=== PATIENT | male | born 1955 | race Caucasian/White ===

== ENCOUNTER 2016-12-30 19:10 | Inpatient (IN) ==
--- NOTE | 2016-12-30 19:24 | ED EKG INTERP ---
EKG Interpretation - EKG Time of EKG reading by physician:: 19:17 EKG Read and Signed by:: Jamil Martinez EKG Interpretation (*Must complete 3 of following elements*): Abnormal Rate: 82 Rhythm: SR with occasional premature ventricular complezes and fusion complexes Comments: Abnormal ECG Attestation - Scribe Verification/Attestation Scribe:: Padmini Granados Acting as Scribe for:: Jamil Martinze Scribe documention review:: This chart was documented by a scribe and accurately reflects the service the provider performed and the decisions made by the provider.
--- NOTE | 2016-12-30 20:17 | PROVIDER DOCUMENTATION ---
HPI-Respiratory General <Jamli Martinez - Last Filed: 12/30/16 21:25> - General Source: patient - History of Present Illness-Resp Quality of Pain: reports: aching Severity in ED: reports: moderate Onset/Duration: reports: last week Timing: reports: still present Exposure: reports: unknown cause Cough Quality/Degree: reports: no cough Associated Symptoms: reports: shortness of breath, other (weakness, pedal edema , swollen abdomen). denies: flu-like symptoms, sweaty <Padmini Granados - Last Filed: 12/30/16 21:32> - General Chief Complaint: Shortness of Breath Stated Complaint: "ABD BLOATING, THINK IT'S HEART FAILURE" Time Seen by Provider: 12/30/16 19:46 Allergies/Adverse Reactions: Patient Allergies Allergy/AdvReac Type Severity Reaction Status Date / Time zinc Allergy ANAPHYLAXIS Verified 12/30/16 20:37 Home Medications: Home Medication List Medication Instructions Recorded Confirmed Last Taken Type Carvedilol 3.125 mg PO BID 07/22/16 12/30/16 12/30/16 18:00 History Fexofenadine [Beatriz] 180 mg PO DAILY 07/22/16 12/30/16 12/30/16 08:00 History Magnesium Oxide [Mag-Ox] 400 mg PO DAILY 07/22/16 12/30/16 12/30/16 08:00 History Furosemide [Lasix] 60 mg PO EVERY OTHER DAY #30 tablet 07/27/16 12/30/16 08:00 Rx Spironolactone [Aldactone] 25 mg PO DAILY #30 tablet 07/27/16 12/30/16 12/30/16 08:00 Rx Multivitamin [Multivitamins] 1 each PO QAM 12/30/16 12/30/16 12/30/16 08:00 History - History of Present Illness-Resp Nature of Presenting Problem: 61 Y/O M presents to ED with SOB. Pt states that he has a hx of CHF, for the past week increased SOB, states swelling in ABD, with pedal edema and states weakness, with poor appetite. Pt has a defibrillator, no hx of heart attack or stroke. (Padmini Granados) Review of Systems - Adult - REVIEW OF SYSTEMS - ADULT Constitutional: denies: chills, fever Eyes: reports: no symptoms reported Ears, Nose, Mouth & Throat: reports: no symptoms reported Cardiovascular: reports: no symptoms reported Respiratory: reports: shortness of breath Gastrointestinal: reports: abdominal pain, poor appetite Genitourinary: reports: no symptoms reported Musculoskeletal: reports: muscle weakness Integumentary: reports: no symptoms reported Neurological: reports: no symptoms reported Psychiatric: reports: no symptoms reported Endocrine: reports: no symptoms reported Hematologic/Lymphatic: reports: no symptoms reported Allergic/Immunologic: reports: no symptoms reported All Other Systems: Reviewed and Negative <Padmini Granados - Last Filed: 12/30/16 21:32> Past History - Adult - PAST MEDICAL HISTORY-ADULT Review of Records: reports: Old Records Reviewed, Nursing Assessment Review, Medications Reviewed, Social history reviewed & non-contributory. Cardiovascular: reports: CHF - IMMUNIZATION STATUS Childhood Immunizations: See Nurse Assessment Flu Vaccine: See Nurse Assessment - SOCIAL HISTORY Smoking: cigarettes, less than 1 pack/day Substance Use: none/never Alcohol Use Frequency: sober (former use) <Padmini Granados - Last Filed: 12/30/16 21:32> Physical Exam-General - CONSTITUTIONAL General Appearance: no apparent distress. negative: appears well - EYES Eyes: PERRL/EOMI, pink conjunctivae, fundi clear, no AV nicking - HEAD, EARS, NOSE, MOUTH & THROAT HENMT: TMs normal, pharynx normal. negative: moist mucous membranes - NECK Neck: non-tender, full range of motion, supple - RESPIRATORY Respiratory: chest non-tender, rales (bilateral) - CARDIOVASCULAR Cardiovascular: irregularly irregular - GASTROINTESTINAL (ABDOMEN) Abdominal Exam: tenderness. negative: guarding - LYMPHATIC Lymphatic: no adenopathy - MUSCULOSKELETAL Back Exam: normal inspection, no CVA tenderness, no vertebral tenderness Extremity: pedal edema (+2, +3) - SKIN Integumentary: normal color, normal turgor, warm/dry - NEUROLOGIC Neurologic: appliances sample maker II-XII nml as tested - PSYCHIATRIC Psych/Mental Status: normal mood/affect, normal thought process, oriented x 3 <Padmini Granados - Last Filed: 12/30/16 21:32> Progress <Jamil Martinez - Last Filed: 12/30/16 21:25> - XRAY 1 XRAY Study: Chest Impression: Abnormal XRAY Interpretation: Cardiomegaly, COPD changes 2 XRAY Study: Abdomen Impression: Abnormal XRAY Interpretation: constipation - CONSULTS/PCP/HOSPITALIST Notification #1 *Consult/PCP/Hospitalist*: Dr. Kimble Time Discussed: 21:13 Reason/Comments: Consult and POC. Consult Disposition: Admit (Admit Accepted) <Padmini Granados - Last Filed: 12/30/16 21:32> - PLAN OF CARE/RESULTS Progress/Plan/Lab Results: Laboratory Tests 12/30/16 12/30/16 12/30/16 19:35 19:35 19:35 WBC 19.65 H RBC 3.96 L Hgb 13.2 L Hct 39.0 L MCV 98.5 MCH 33.3 H MCHC 33.8 RDW Std Deviation 14.3 Plt Count 69 L MPV 14.7 H Neut % (Auto) 76.8 H Lymph % (Auto) 10.2 L Hyde % (Auto) 12.8 H Eos % (Auto) 0.1 Baso % (Auto) 0.1 Neut # (Auto) 15.11 H Lymph # (Auto) 2.00 Hyde # (Auto) 2.51 H Eos # (Auto) 0.02 Baso # (Auto) 0.01 Segmented Neutrophils 76 H Band Neutrophils 4 H Lymphocytes 14 L Monocytes 6 Large Platelets OCCASIONAL Anisocytosis 1+ PT INR PTT (Actin FS) D-Dimer 7.37 H Sodium 122 L Potassium 4.9 Chloride 82 L Carbon Dioxide 17 L Anion Gap 23 BUN 84 H Creatinine 1.8 H Estimated GFR/1.73 m2 39 BUN/Creatinine Ratio 47 Glucose 129 H Calculated Osmolality 273 Calcium 8.8 Magnesium 3.2 H Total Bilirubin 2.05 H AST 738 H ALT 1638 H Alkaline Phosphatase 198 H Creatine Kinase 141 Troponin T [id number]-R-[id number] Pept Total Protein 6.4 Albumin 3.6 Globulin 2.8 Albumin/Globulin Ratio 1.3 12/30/16 12/30/16 12/30/16 19:35 20:00 20:00 WBC RBC Hgb Hct MCV MCH MCHC RDW Std Deviation Plt Count MPV Neut % (Auto) Lymph % (Auto) Hyde % (Auto) Eos % (Auto) Baso % (Auto) Neut # (Auto) Lymph # (Auto) Hyde # (Auto) Eos # (Auto) Baso # (Auto) Segmented Neutrophils Band Neutrophils Lymphocytes Monocytes Large Platelets Anisocytosis PT 25.7 H INR 2.57 PTT (Actin FS) 29.6 D-Dimer Sodium Potassium Chloride Carbon Dioxide Anion Gap BUN Creatinine Estimated GFR/1.73 m2 BUN/Creatinine Ratio Glucose Calculated Osmolality Calcium Magnesium Total Bilirubin AST ALT Alkaline Phosphatase Creatine Kinase Troponin T 0.014 Abv-Q-[id number] Pept 72060 H Total Protein Albumin Globulin Albumin/Globulin Ratio Orders Category Date Time Status Cardiac Monitoring DIRECTED Care 12/30/16 19:17 Active Saline Loc NOW Care 12/30/16 19:17 Active ABDOMEN FLAT/UPRIGHT [RAD] Stat Exams 12/30/16 20:10 Taken CHEST-2 VIEWS [RAD] Stat Exams 12/30/16 19:17 Taken BLOOD CULTURE [BLDCUL] Stat Lab 12/30/16 21:10 Results CBC WITH ELECTRONIC DIFF [HEME] Stat Lab 12/30/16 19:35 Completed CK PROFILE [SP CHEM] Stat Lab 12/30/16 19:35 Completed COMPREHENSIVE METABOLIC PANEL [CHEM] Stat Lab 12/30/16 19:35 Completed D-DIMER [CHEM] Stat Lab 12/30/16 19:35 Completed DIGOXIN [TDM] Stat Lab 12/30/16 20:00 Received DIRECT STREP Stat Lab 12/30/16 21:04 Completed INFLUENZA SCREEN A/B Stat Lab 12/30/16 21:04 Received LACTATE, PLASMA [CHEM] Stat Lab 12/30/16 21:16 Received MAGNESIUM [CHEM] Stat Lab 12/30/16 19:35 Completed PRO B-NATRIURETIC PEPTIDE Stat Lab 12/30/16 20:00 Completed PROTIME WITH INR [COAG] Stat Lab 12/30/16 19:35 Completed PTT [COAG] Stat Lab 12/30/16 19:35 Completed TROPONIN T Stat Lab 12/30/16 20:00 Completed URINALYSIS [URINALYSIS] Stat Lab 12/30/16 20:51 Uncollected CefTRIAXONE 1 GM/NS [Rocephin 1 gm/Ns] 50 ml Med 12/30/16 20:45 Discontinued IV NOW EKG [EKG] Stat Ther 12/30/16 19:17 Ordered Vital Signs - 24 hr 12/30/16 12/30/16 19:18 19:47 Temperature 98.8 F Pulse Rate 81 Respiratory 20 Rate Blood Pressure 96/75 O2 Sat by Pulse 100 Oximetry (Padmini Granados) Departure - Departure Time of Disposition Order: 21:24 Certified Medical Emergency: Emergent <Jamil Martinez - Last Filed: 12/30/16 21:25> - Departure Time of Disposition Order: 21:31 Certified Medical Emergency: Emergent <Padmini Granados - Last Filed: 12/30/16 21:32> - Departure DIAGNOSIS: SOB (shortness of breath), Abnormal laboratory test result, Acute prerenal azotemia CHF (congestive heart failure) Qualifiers: Congestive heart failure type: unspecified congestive heart failure type Congestive heart failure chronicity: unspecified congestive heart failure chronicity Qualified Code(s): I50.9 - Heart failure, unspecified Leukocytosis, unspecified Qualifiers: Leukocytosis type: unspecified Qualified Code(s): D72.829 - Elevated white blood cell count, unspecified Disposition: ADMITTED INPATIENT 09 Condition: Stable Additional Instructions: ED Follow Up Instructions: You have been treated by a care provider in the Emergency Department. These instructions are being provided to you so you can have an understanding of how to care for yourself upon discharge. Upon discharge from the Emergency Department, you are responsible for making arrangements for follow-up care by a physician of your choice. Take all prescribed medications as directed. Return to the Emergency Department immediately for any new or worsening symptoms. You may call the Physician Referral phone number at [phone] to obtain a list of Physicians who are taking new patients. Referrals: Dwight Goldman [Primary Care Provider] - Attestation - Scribe Verification/Attestation Scribe:: Padmini Granados Acting as Scribe for:: Jamil Martinez Scribe documention review:: This chart was documented by a scribe and accurately reflects the service the provider performed and the decisions made by the provider. <Padmini Granados - Last Filed: 12/30/16 21:32> Physician Attestation
[2016-12-30 20:26] LABS: BASO% 0.1 % (0.0-0.8); EOS# 0.02 X1000 (0.0-0.7); EOS% 0.1 % (0.0-10.0); HEMOGLOBIN 13.2 g/dL (14.0-18.0); LYMPH% 10.2 % (20.5-51.1); MANUAL DIFF NEEDED? YES; MCH 33.3 PG (27-31); MCHC 33.8 g/dL (33-37); MCV 98.5 FL (81-99); MONO# 2.51 X1000 (0.11-0.59); MONO% 12.8 % (1.7-9.3); MPV 14.7 FL (7.4-10.4); NEUT% 76.8 % (42.2-75.2); PLT 69 X1000 (130-400); RBC 3.96 XMIL (4.7-6.1)
[2016-12-30 20:43] LABS: INR 2.57; PROTIME 25.7 Seconds (9.2-11.7); PTT 29.6 Seconds (22.0-36.0)
[2016-12-30] MEDS ORDERED: ROCEPHIN 1 GM/NS 50 ML IV ONE (20:45)
[2016-12-30 21:16] LABS: BANDS 4 % (0-1); LYMPHS 14 % (21-51); MONO 6 % (1-9)
[2016-12-30 21:17] LABS: ALBUMIN 3.6 g/dL (3.5-5.0); CALCIUM 8.8 mg/dL (8.8-10.2); MAGNESIUM 3.2 mg/dL (1.5-2.7); POTASSIUM 4.9 mmol/L (3.5-5.1); TOTAL BILIRUBIN 2.05 mg/dL (0.20-1.00); TOTAL PROTEIN 6.4 g/dL (6.3-8.3)
[2016-12-30 21:19] LABS: LARGE PLATELETS OCCASIONAL
[2016-12-30 23:48] LABS: URINE SOURCE CLEAN CATCH
[2016-12-30 23:57] LABS: BILIRUBIN URINE SMALL (NEGATIVE); BLOOD URINE NEGATIVE (NEGATIVE); CLARITY CLEAR (CLEAR); COLOR YELLOW; GLUCOSE URINE NEGATIVE (NEGATIVE); LEUKOCYTES URINE NEGATIVE (NEGATIVE); NITRITE URINE NEGATIVE (NEGATIVE); PH URINE 5.5; PROTEIN URINE TRACE mg/dL (NEGATIVE); SP GRAVITY URINE >= 1.030; UROBILINOGEN URINE 0.2 EU/dL (0.2-1.0)
[2016-12-31 00:02] LABS: URINE RBC <10 /HPF (<10); URINE WBC <10 /HPF (<10)
[2016-12-31] MEDS: LASIX IV SCH ×3 (01:18→23:28)
--- NOTE | 2016-12-31 04:45 | HISTORY AND PHYSICAL ---
CHIEF COMPLAINT: Shortness of breath x4 days. HISTORY OF PRESENTING ILLNESS: This is a 61-year-old male with a history of congestive heart failure, diabetes mellitus type 2, and hypertension, who had presented to the emergency department with 4 days history of worsening shortness of breath. The patient states that it feels like his previous heart failure exacerbation. He states that he could not catch his breath. He was getting more swollen and subsequently had come to the emergency department. In the ER, he was evaluated. He was found to be in heart failure and due to his presenting symptoms it was thought that he would need hospitalization for further management. At the time of my examination, he denied any headache, fever, chills, chest pain, hemoptysis, or any weight changes but complained of more shortness of breath. PAST MEDICAL HISTORY: Includes CHF, systolic dysfunction, diabetes mellitus type 2, hypertension, paroxysmal atrial fibrillation. PAST SURGICAL HISTORY: AICD, tonsillectomy. ALLERGIES: Zinc. CURRENT MEDICATIONS: As listed in the MAR. SOCIAL HISTORY: Forty-five pack years history of smoking. Denies any history of alcohol or illicit drug use. FAMILY HISTORY: Positive for coronary disease in father. REVIEW OF SYSTEMS: [employer] point systems is as in HPI. Other systems negative. PHYSICAL EXAMINATION: GENERAL: Cooperative, friendly male. He is resting more comfortably now. VITAL SIGNS: Temperature 98.8 degrees, pulse 81, respirations 20, blood pressure 96/75. HEENT: Atraumatic, normocephalic. Extraocular movements intact. PERRLA. NECK: No masses. CHEST: Bibasilar rales. CARDIOVASCULAR: Regular rate and rhythm. ABDOMEN: Soft. Positive bowel sounds. EXTREMITIES: Plus-1 edema. NEUROLOGIC: He is awake, alert, oriented x3. GENITOURINARY: No bladder distention. SKIN: Warm. LABORATORIES AND STUDIES: WBC 19.65, hemoglobin 13.2, hematocrit 39.0, platelets 69,000. Sodium 122, potassium 4.9, chloride 82, CO2 17, BUN is 84, creatinine is 1.8, glucose is 129. ProBNP is 16,352. Plasma lactate is 4.9. ASSESSMENT: This is a 61-year-old male with a history of congestive heart failure, diabetes mellitus type 2, and hypertension who presented to the emergency department with 4 days history of worsening shortness of breath. He is found to be in heart failure. He will need hospitalization for further management. 1. Acute congestive heart failure exacerbation, suspected systolic dysfunction. 2. Hyponatremia. 3. Leukocytosis. 4. Chronic cirrhosis with abnormal LFT. 5. Acute kidney injury. 6. Diabetes mellitus type 2. PLAN: 1. We will admit patient to [facility]. 2. We will consult his content assistant. 3. We will continue with gentle diuresis. 4. We will fluid restrict p.o. 5. We will re-evaluate his previous cirrhosis workup. 6. We will monitor renal function. 7. Monitor blood glucose closely. 8. We will put patient on DVT prophylaxis with SCDs. 9. We will continue to follow and reassess.
--- NOTE | 2016-12-31 07:03 | Diag Imaging Result Document ---
PROCEDURE NAME: CHEST-2 VIEWS - 12/30/2016 FRONTAL AND LATERAL CHEST, TWO VIEWS: COMPARISON: 07/26/2016. FINDINGS: The lungs are well expanded. The heart is borderline mildly prominent. The patient has a left-sided pacemaker. No pleural effusions. Mild increased interstitial markings believed to be slight vascular distention. No consolidation. IMPRESSION: Mild increased interstitial markings believed to represent mild pulmonary edema.
--- NOTE | 2016-12-31 07:12 | Diag Imaging Result Document ---
PROCEDURE NAME: ABDOMEN FLAT/UPRIGHT - 12/30/2016 FLAT AND UPRIGHT, THREE VIEWS: FINDINGS: No free air beneath the diaphragm. No bowel obstruction. No organomegaly. Mild scoliosis with moderate degenerative changes. No abnormal abdominal calcifications. IMPRESSION: No acute abnormality although there are longstanding degenerative changes to the spine with scoliosis.
[2016-12-31] MEDS: HUMULIN R SUBQ SCH ×4 (07:44→20:39)
[2016-12-31] MEDS: COREG PO SCH ×2 (08:05→20:39)
[2016-12-31] MEDS: MAG-OX PO SCH (08:05)
[2016-12-31] MEDS: ALDACTONE PO SCH (08:05)
[2016-12-31 08:37] LABS: BASO% 0.1 % (0.0-0.8); EOS# 0.01 X1000 (0.0-0.7); EOS% 0.1 % (0.0-10.0); HEMATOCRIT 37.1 % (42.0-52.0); HEMOGLOBIN 12.6 g/dL (14.0-18.0); IMM GRAN# 0.05 X1000 (0.0-0.04); IMM GRAN% 0.3 % (0.0-0.5); LYMPH# 2.44 X1000 (1.2-3.4); LYMPH% 15.4 % (20.5-51.1); MANUAL DIFF NEEDED? YES; MCH 32.7 PG (27-31); MCV 96.4 FL (81-99); MONO% 12.6 % (1.7-9.3); NEUT% 71.5 % (42.2-75.2); RBC 3.85 XMIL (4.7-6.1)
[2016-12-31 09:02] LABS: BANDS 2 % (0-1); LYMPHS 6 % (21-51); MONO 14 % (1-9)
[2016-12-31 09:03] LABS: PLT 92 X1000 (130-400)
--- NOTE | 2016-12-31 09:22 | EKG Report ---
Test Performed on : 12/30/2016 7:17:48 PM Test Reason : Chest Pain Blood Pressure : / mmHG Vent. Rate : 082 BPM Atrial Rate : 082 BPM P-R Int : 182 ms QRS Dur : 132 ms QT Int : 436 ms P-R-T Axes : 072 018 072 degrees QTc Int : 509 ms Sinus rhythm. with occasional premature ventricular complexes. and fusion complexes Possible Left atrial enlargement Nonspecific intraventricular block Nonspecific T wave abnormality Abnormal ECG When compared with ECG of 22-JUL-2016 22:58, fusion complexes are now present premature ventricular complexes. are now present Unconfirmed Result
[2016-12-31] MEDS ORDERED: PRINIVIL PO SCH (14:30)
[2016-12-31] MEDS: PRINIVIL PO SCH (14:56)
--- NOTE | 2016-12-31 17:58 | CONSULTATION ---
DATE OF CONSULTATION: 12/31/2016 IMPRESSION: 1. Acute on chronic systolic heart failure with predominantly right-sided heart failure. 2. Medical noncompliance. 3. Severe nonischemic cardiomyopathy. 4. Type 2 diabetes mellitus. 5. Hypertension. 6. History of previous atrial fibrillation. RECOMMENDATIONS: 1. Continue diuresis with intravenous Lasix. 2. Add low-dose angiotensin converting enzyme inhibitor, lisinopril as tolerated. 3. Continue Coreg. 4. Compliance with medications and followup discussed at length with the patient and his . HISTORY: This 61-year-old, white male, with past history of severe nonischemic cardiomyopathy, diabetes mellitus and hypertension as well as previous episode of atrial fibrillation was admitted for further evaluation of exacerbation of congestive heart failure. He was hospitalized here last fall for congestive heart failure and improved with diuresis. He had a followup visit with Dr. Fernandez back in September. He indicates that insurance company would not refill some of his medications in October. Because of financial reasons he had not come back for followup. Thus he has been without his angiotensin converting enzyme inhibitor and digoxin since October. He relates a 1-week history of swelling and abdominal bloating. There has been exertional shortness of breath as well. There has been no orthopnea. He presented to the hospital for evaluation and he was admitted for further management of congestive heart failure. He is diuresing with intravenous Lasix. He relates considerable financial difficulty related to medical expenses. PAST MEDICAL HISTORY: 1. Severe nonischemic cardiomyopathy with left ejection fraction approximately 20%. 2. Diabetes mellitus. 3. Hypertension. 4. Hyperlipidemia. 5. History of previous atrial fibrillation. 6. Status post [facility] pacemaker/defibrillator. ALLERGIES: He is allergic or intolerant to zinc. PAST SURGICAL HISTORY: Includes implantable defibrillator and tonsillectomy. MEDICATIONS: Prior to admission as listed. SOCIAL HISTORY: He smokes 1-1/2 pack of cigarettes per day. He has history of previous alcohol use but discontinued this 15 years ago. FAMILY HISTORY: Significant in that his father and brother also have congestive heart failure. There is no family history of liver disease. REVIEW OF SYSTEMS: Pulmonary: Noteworthy for exertional dyspnea. Gastrointestinal: Negative. Constitutional: Negative. Remaining review of systems negative/noncontributory 14 total systems reviewed. PHYSICAL EXAM: This is an older middle-aged male, in no distress.Vital Signs: As recorded. Include a blood pressure 101/69, heart rate 90 and regular. HEENT Exam: Extraocular movements appear intact. Mucous membranes are moist. Neck: Supple. Jugular venous distention is evident consistent with central venous pressure of greater than 12. There are no carotid bruits. Chest: Clear to auscultation. Cardiac: Reveals a regular rate and rhythm without appreciable murmur, gallop. Abdomen: Soft, nontender. Extremities: Demonstrate mild 1+ pretibial edema. Neurologic Exam: Reveals him to be alert, fully oriented. Speech is fluent. Moves all 4 extremities equally well. Skin: Warm, dry. Psych: Exam reveals mood to be appropriate. ECG demonstrates sinus rhythm, left atrial abnormality. Delayed precordial R-wave progression. Nonspecific intraventricular conduction block and nonspecific T-wave abnormality.
--- NOTE | 2016-12-31 18:23 | PROGRESS NOTE ---
DATE: 12/31/2016 SUBJECTIVE: Patient reports feeling better, less shortness of breath. No chest pain, no fever, no chills. OBJECTIVE: Vital Signs: Temperature 98.6 degrees, heart rate 81, respiratory rate 20, blood pressure 91/71, O2 saturation 100% on room air. General Examination: This is a 61-year-old male, lying in bed, in no acute distress. HEENT: Head is normocephalic, atraumatic. Anicteric sclerae and pale conjunctivae. Mucous membranes moist. Neck: Supple. No JVD noted. No carotid bruits. No lymphadenopathy. No thyromegaly. Cardiovascular: S1, S2 heard. No murmurs, gallops, or rubs. Regular rate and rhythm. Respiratory: Clear bilaterally to auscultation, very few bibasilar rales, and the patient is not using any accessory muscles or having work of breathing. Abdomen: Soft, nontender to palpation. Bowel sounds present. No organomegaly. Extremities: 1+ pitting edema in both lower extremities. Peripheral pulses present in both legs. Neurological: Patient is alert and oriented x3. Able to move her extremities. Cranial nerves 2-12 grossly normal. LABORATORY DATA: The white cell count is 15.85, hemoglobin 12.6, hematocrit 37.1, platelets 92,000. No BMP. ASSESSMENT: 1. Acute congestive heart failure exacerbation. 2. Hyponatremia. 3. Chronic liver cirrhosis with normal liver function tests. 4. Acute kidney injury. 5. Diabetes mellitus type 2. PLAN: 1. Patient admitted to the hospital for acute congestive heart failure. The patient has been started on Lasix, and in this case he is getting Lasix 40 mg q.12 hours. We will continue with the same management. 2. For hyponatremia, we are going to continue monitoring BMP for acute kidney injury. The creatinine was 1.8. We are going to check a BMP tomorrow, we will compare. 3. For diabetes mellitus, we will continue with sliding scale insulin. Further recommendations to follow according to the clinical situation of the patient.
[2017-01-01] MEDS: LASIX IV SCH (01:59)
[2017-01-01 05:18] LABS: EOS# 0.02 X1000 (0.0-0.7); EOS% 0.2 % (0.0-10.0); HEMATOCRIT 34.6 % (42.0-52.0); HEMOGLOBIN 11.9 g/dL (14.0-18.0); IMM GRAN# 0.04 X1000 (0.0-0.04); IMM GRAN% 0.3 % (0.0-0.5); LYMPH# 2.24 X1000 (1.2-3.4); MANUAL DIFF NEEDED? NO; MCH 32.9 PG (27-31); MCHC 34.4 g/dL (33-37); MCV 95.6 FL (81-99); MONO# 1.64 X1000 (0.11-0.59); MONO% 12.5 % (1.7-9.3); MPV 13.6 FL (7.4-10.4); PLT 76 X1000 (130-400); RBC 3.62 XMIL (4.7-6.1)
[2017-01-01 05:36] LABS: ALBUMIN 3.3 g/dL (3.5-5.0); CALCIUM 8.2 mg/dL (8.8-10.2); POTASSIUM 4.4 mmol/L (3.5-5.1); TOTAL BILIRUBIN 1.87 mg/dL (0.20-1.00); TOTAL PROTEIN 5.6 g/dL (6.3-8.3)
[2017-01-01] MEDS: HUMULIN R SUBQ SCH ×4 (06:27→20:57)
[2017-01-01] MEDS: COREG PO SCH ×2 (08:24→20:57)
[2017-01-01] MEDS: ALDACTONE PO SCH (08:24)
[2017-01-01] MEDS: PRINIVIL PO SCH (08:24)
[2017-01-01] MEDS: MAG-OX PO SCH (08:24)
--- NOTE | 2017-01-01 09:21 | Diag Imaging Result Document ---
PROCEDURE NAME: CHEST-2 VIEWS - 01/01/2017 PA AND LATERAL RADIOGRAPH OF THE CHEST: COMPARISON: 12/30/2016. FINDINGS: Mild increased interstitial markings are stable suggesting very mild edema or, perhaps, chronic interstitial thickening. There is suggestion of minimal pulmonary venous congestion that is unchanged. No new consolidations are identified. There is stable cardiomegaly. IMPRESSION: Stable chest.
--- NOTE | 2017-01-01 15:23 | PROGRESS NOTE ---
DATE: 01/01/2017 SUBJECTIVE: Mr. English is a 61-year-old male, he is in no acute distress and able to answer questions appropriately. He states he has no complaints. He did feel like he had felt a little "blah" earlier but is starting to feel better again. He really could not elaborate on what "blah" was. He has had a high blood pressure that has been ranging in the 80s for the last 12 hours. But these blood pressures are okay by Dr. Pittman. OBJECTIVE: Vital Signs: Temperature is 97.4 degrees, heart rate 67, respiratory rate 13, blood pressure 86/57. O2 saturation 95% on room air. Weight on admit for 12/30 was 216 pounds. On 12/31, he was 214 pounds and on 01/01 was 221 pounds. General: Mr. English is a 61-year-old male, he is in no acute distress. Able to answer questions appropriately. Cardiovascular: S1-S2. Regular rate and rhythm. No rubs, gallops, or murmurs. Pulmonary: Clear posteriorly, bilateral breath sounds. Mild crackles in the bases bilaterally. Currently on room air with no work of breathing noted. Extremities: No edema, +2 dorsalis and radial pulses. LABORATORY DATA: White blood cells 13,000. Hemoglobin 11, hematocrit 34, platelet count 76,000. Sodium 124, potassium 4.4, BUN 99, creatinine 2, glucose 88. Total bilirubin 1.87, AST 513, ALT 1238. Albumin 3.3. IMAGING: Chest x-ray: Mild increased interstitial markings that are stable suggesting very mild edema or chronic interstitial thickening. Minimal pulmonary venous congestion is unchanged. ASSESSMENT AND PLAN: 1. Acute on chronic systolic heart failure with right-sided heart failure/severe nonischemic cardiomyopathy. He has been followed by Cardiology. He has systolic blood pressures that run anywhere from 70s to 80s systolic at home. His Lasix has been changed from IV to p.o. and, per Cardiology, we are to give all antihypertensives that are ordered unless systolic blood pressure drops into the 60s. Patient is asymptomatic with this. 2. Hyponatremia. It is improving. 3. Acute kidney injury on chronic kidney disease stage 3. Baseline creatinine is anywhere from 1.0 to 1.7. Currently he has ranged 1.8 to 2.0. Today is 2.0. Lasix has been changed from IV to p.o. We will continue to monitor daily. 4. Diabetes myelitis. Glucoses are controlled. 5. Hyperbilirubinemia with transaminitis. Total bilirubin is 1.87 today. Back in July he ranged anywhere from 1.7 to 4.0 on his bilirubin. This is likely secondary to right-sided heart failure. His numbers have mildly improved today. 6. Thrombocytopenia. Platelet count is down to 76. We will monitor. 7. Anemia that is chronic. We will continue to monitor. 8. Deep venous thrombosis prophylaxis. SCDs. 9. Gastrointestinal prophylaxis. Nothing at this time. Dictated by ROBIN Giles for Ted Chavez MD
[2017-01-01] MEDS: LASIX PO SCH (20:57)
[2017-01-02 05:24] LABS: MANUAL DIFF NEEDED? NO
[2017-01-02 05:41] LABS: BASO% 0.1 % (0.0-0.8); EOS# 0.01 X1000 (0.0-0.7); EOS% 0.1 % (0.0-10.0); HEMATOCRIT 36.8 % (42.0-52.0); HEMOGLOBIN 12.8 g/dL (14.0-18.0); IMM GRAN# 0.03 X1000 (0.0-0.04); IMM GRAN% 0.2 % (0.0-0.5); LYMPH# 1.64 X1000 (1.2-3.4); LYMPH% 12.4 % (20.5-51.1); MCH 32.7 PG (27-31); MCHC 34.8 g/dL (33-37); MCV 93.9 FL (81-99); MONO# 1.37 X1000 (0.11-0.59); MONO% 10.3 % (1.7-9.3); MPV 14.4 FL (7.4-10.4); NEUT% 76.9 % (42.2-75.2); PLT 88 X1000 (130-400); RBC 3.92 XMIL (4.7-6.1)
[2017-01-02 05:58] LABS: ALBUMIN 3.3 g/dL (3.5-5.0); POTASSIUM 4.7 mmol/L (3.5-5.1); TOTAL BILIRUBIN 1.94 mg/dL (0.20-1.00); TOTAL PROTEIN 5.8 g/dL (6.3-8.3)
--- NOTE | 2017-01-02 06:59 | EKG Report ---
Test Performed on : 01/01/2017 00:17:37 AM Test Reason : No Order in [facility] Blood Pressure : / mmHG Vent. Rate : 067 BPM Atrial Rate : 067 BPM P-R Int : 190 ms QRS Dur : 132 ms QT Int : 460 ms P-R-T Axes : 073 -07 076 degrees QTc Int : 486 ms Sinus rhythm. with occasional premature ventricular complexes. Nonspecific intraventricular block Abnormal ECG When compared with ECG of 30-DEC-2016 19:17, (Unconfirmed) fusion complexes are no longer present Confirmed by Radha COLNI, Lex Tomas ([id number]) on 01/04/2017 1:35:13 PM
[2017-01-02] MEDS: HUMULIN R SUBQ SCH ×2 (07:33→12:07)
[2017-01-02 07:40] VITALS: BP 81/50
[2017-01-02] MEDS: COREG PO SCH (08:14)
[2017-01-02] MEDS: PRINIVIL PO SCH (08:14)
[2017-01-02] MEDS: MAG-OX PO SCH (08:15)
[2017-01-02] MEDS: LASIX PO SCH (08:15)
[2017-01-02] MEDS: ALDACTONE PO SCH (08:15)
[2017-01-02] MEDS ORDERED: SAMSCA PO ONE (10:08)
--- NOTE | 2017-01-02 16:19 | ECHO REPORT ---
ORDER DATE: 12/31/2016 ECHOCARDIOGRAPHIC MEASUREMENTS: 1. Interventricular septum 0.7. 2. Left ventricular posterior wall 0.7. 3. Diastolic diameter 5.1. 4. Left atrium 4.6. Aorta 3. SUMMARY OF 2-DIMENSIONAL IMAGIN. Aortic valve leaflets were trileaflet. Tricuspid valve was normal. Pulmonic valve was normal. Mitral valve was normal. There was trace pulmonary regurgitation. 2. Left ventricle was severely dilated with severely reduced systolic function. Estimated ejection fraction of 15%. There is severe global hypokinesis. 3. Pacing leads are noted in the right chamber. 4. There is moderate mitral regurgitation. 5. Peak velocity across the aortic valve less than 2 m/sec. By Doppler studies, there is no aortic stenosis or regurgitation. There is moderate tricuspid regurgitation. Peak velocity across the tricuspid valve was 2 m/sec. 6. There is no pericardial effusion or obvious intracardiac mass or thrombus seen.
--- NOTE | 2017-01-03 06:14 | DISCHARGE SUMMARY ---
ADMISSION DATE: 12/30/2016 DISCHARGE DATE: 01/02/2017 DISCHARGE DIAGNOSES: 1. Acute congestive heart failure exacerbation improved. 2. Severe nonischemic cardiomyopathy. 3. Diabetes type 2. 4. Medical noncompliance. 5. Hypertension. 6. History of previous atrial fibrillation. CONSULTATION: Dr. Baljit Del Rio from Cardiology. PROCEDURES: An x-ray done on admission showed mild increased interstitial marking believed to represent mild pulmonary edema. HOSPITAL COURSE: This is a 61-year-old male with history of congestive heart failure, diabetes mellitus type 2, and hypertension who presented to the emergency department with a 4-day history of worsening shortness of breath. The patient states that it feels like her previous heart failure exacerbation. The patient reports that he could not catch his breath. He noticed more swelling of both lower extremities so, he decided to come to the emergency department. The patient admitted to the hospital for further evaluation and treatment. Cardiology has evaluated this patient. The patient was started on aggressive diuretic medication. In this case, he was receiving Lasix 40 mg IV q.12 hours, and although clinically he was less short of breath, blood pressure has gone down to the 70s and 80s. Although the patient reported that this is his usual blood pressure 80s and 90s systolic blood pressure. In any case, because of low blood pressure, Cardiology decided to change IV Lasix to oral Lasix. Patient was receiving furosemide 40 mg p.o. b.i.d., but at discharge considering that the blood pressure is still in the range of 80s and 90s, we prefer to continue with just Lasix 40 mg p.o. daily. Also seen in the hospital, Cardiology has started him on small doses of lisinopril; in this case, 2.5 mg p.o. daily. We will continue with Coreg at the same time. Patient is supposed to see his primary care physician in 1 week. It is important to remark that this patient has hyponatremia 124, and that hyponatremia is an indicator of severe heart failure. In any case, we prefer to give him 1 dose of Samsca, he was instructed to see his primary care physician in 1 week and have a BMP repeated. Patient is being discharged in stable condition. The patient is able to walk around. DISCHARGE PHYSICAL EXAMINATION: Vitals: Temperature 96.7 degrees, heart rate 73, respiratory rate 26, blood pressure 100/67. O2 saturation 98% on room air. General: This is a 61-year-old male, lying in bed, in no acute distress. HEENT: Head is normocephalic, atraumatic. Anicteric sclerae and pale conjunctivae. Mucous membranes moist. Pupils equal, round, reactive to light and accommodation. Neck: Supple. No JVD noted. No carotid bruits. No lymphadenopathy. No thyromegaly. Cardiovascular: S1, S2 heard. No murmurs, gallops, or rubs. Regular rate and rhythm. Respiratory: Clear bilaterally to auscultation. Very few rales in both bases but definitely much better in comparing with admission. Abdomen: Soft, nontender to palpation. Bowel sounds present. No organomegaly. Extremities: No clubbing, cyanosis and very mild edema noted in both lower extremities. Much better in comparing to admission. Neurological: Patient is alert and oriented x3. Able to move 4 extremities. Cranial nerves 2-12 grossly normal. DISCHARGE DISPOSITION: To home to self-care. FOLLOW UP: 1. With Dr. Dwight Goldman in 1 week with a [facility]. 2. With Dr. Fernandez his primary forge tender in 2-4 weeks. LIST OF MEDICATIONS: 1. Furosemide 40 mg 1 tablet p.o. daily. 2. Lisinopril 2.5 mg 1 tablet p.o. daily. 3. Carvedilol 3.125 mg p.o. b.i.d. 4. Beatriz 180 mg p.o. daily as needed for insomnia. 5. Multivitamin 1 tablet p.o. daily. 6. Aldactone 25 mg 1 tablet p.o. daily.
== END 2017-01-02 12:30 | disposition home or self-care (01) | DRG 291 ==
LOC: ED 19:10 → EDIPHOLD 23:46 → 3S 12-31 01:14
PROVIDERS: ATTEND Internal Medicine
DX: I13.0 Hypertensive heart and chronic kidney disease with heart failure and stage 1 through stage 4 chronic kidney disease, or unspecified chronic kidney disease (principal); I50.23 Acute on chronic systolic (congestive) heart failure; E11.22 Type 2 diabetes mellitus with diabetic chronic kidney disease; D69.6 Thrombocytopenia, unspecified; I42.8 Other cardiomyopathies; N18.3 Chronic kidney disease, stage 3 (moderate); E87.1 Hypo-osmolality and hyponatremia; D72.829 Elevated white blood cell count, unspecified; K74.60 Unspecified cirrhosis of liver; I48.0 Paroxysmal atrial fibrillation; F17.210 Nicotine dependence, cigarettes, uncomplicated; T46.0X6A Underdosing of cardiac-stimulant glycosides and drugs of similar action, initial encounter; T46.4X6A Underdosing of angiotensin-converting-enzyme inhibitors, initial encounter; E78.5 Hyperlipidemia, unspecified; D64.9 Anemia, unspecified; Z91.120 Patient's intentional underdosing of medication regimen due to financial hardship; Z95.810 Presence of automatic (implantable) cardiac defibrillator; Z82.49 Family history of ischemic heart disease and other diseases of the circulatory system; Z91.19 Patient's noncompliance with other medical treatment and regimen; Z79.899 Other long term (current) drug therapy
CPT/HCPCS: 71020; 74020; 80053; 80162; 81001; 82550; 82948; 83605; 83735; 83880; 84443; 84484; 85025; 85379; 85610; 85730; 87040; 87081; 87430; 87804; 93005; 93010; 93306; 96374; J0696; J1940

== ENCOUNTER 2019-06-24 08:25 | Inpatient (IN) ==
--- NOTE | 2019-06-24 08:49 | EKG Report ---
Test Performed on : 06/24/2019 08:32:38 AM Test Reason : digoxin toxicity Blood Pressure : / mmHG Vent. Rate : 066 BPM Atrial Rate : 326 BPM P-R Int : 000 ms QRS Dur : 154 ms QT Int : 410 ms P-R-T Axes : 000 -64 090 degrees QTc Int : 429 ms Atrial fibrillation. Left axis deviation Nonspecific intraventricular block Abnormal ECG When compared with ECG of 28-JAN-2017 07:50, Atrial fibrillation. has replaced Electronic ventricular pacemaker Unconfirmed Result
--- NOTE | 2019-06-24 09:05 | PROVIDER DOCUMENTATION ---
HPI-Cardiac General - General Chief Complaint: Abnormal Lab[s] Stated Complaint: [facility] SENT Time Seen by Provider: 06/24/19 08:33 Source: patient, family Allergies/Adverse Reactions: Patient Allergies Allergy/AdvReac Type Severity Reaction Status Date / Time zinc Allergy ANAPHYLAXIS Verified 01/07/17 09:22 Home Medications: Home Medication List Medication Instructions Recorded Confirmed Last Taken Type Magnesium Oxide [Mag-Ox] 400 mg PO BID 07/22/16 06/24/19 01/27/17 18:30 History 400 Apixaban [Eliquis] 5 mg PO BID #60 tablet 01/12/17 06/24/19 01/28/17 06:30 Rx 5 Carvedilol 3.125 mg PO BID #30 tablet 01/12/17 06/24/19 01/27/17 18:30 Rx 3.125 Digoxin [Lanoxin] 250 microgm PO DAILY #30 tablet 01/12/17 06/24/19 01/27/17 0 6:30 Rx 250 Furosemide [Lasix] 40 mg PO DAILY #30 tablet 01/12/17 06/24/19 01/27/17 06:30 Rx 40 LISINOpril [Prinivil] 2.5 mg PO DAILY #60 tablet 01/12/17 06/24/19 01/27/17 06:30 Rx 2.5 Multivitamin [Multivitamins] 1 each PO QAM #30 capsule 01/12/17 06/24/19 01/27/17 Rx 0630 Amiodarone [Cordarone] 200 mg PO DAILY 06/24/19 06/24/19 Unknown History Metolazone 2.5 mg PO DIRECTED 06/24/19 06/24/19 Unknown History Potassium Chloride [Klor-Con M20] 2 tab PO BID 06/24/19 06/24/19 Unknown History Trazodone [Desyrel] 50 mg PO QHS 06/24/19 06/24/19 Unknown History - History of Present Illness-Cardiac Nature of Presenting Problem: Patient states he got a call from 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 He reports having some diarrhea the last couple of days and not feeling well. He is not sleeping well. He denies chest pain. His states he has been slightly confused the last couple of days Location: reports: other (he has not felt well for the past week and has had some diarrhea the last couple of days) Quality of Pain: reports: none Severity in ED: mild Onset/Duration: gradual Timing: still present Context/Activities at Onset: reports: none Modifying Factors: improves with: nothing History of arrythmia: reports: A-Fib Recent use of:: reports: no stimulants Nitro Today/Relief: reports: no nitro taken today Prior Chest Pain/Cardiac Workup: reports: no prior cardiac workup Associated Symptoms: reports: denies symptoms Similar Symptoms Previously?: No Recently Seen Here or By Another Healthcare Provider: Yes (saw the cardiac nurse Tuesday) Review of Systems - Adult - REVIEW OF SYSTEMS - ADULT Constitutional: reports: see HPI Eyes: reports: no symptoms reported Ears, Nose, Mouth & Throat: reports: other (runny nose and mild allergy symptoms) Cardiovascular: reports: no symptoms reported. denies: chest pain, edema Respiratory: reports: dyspnea on exertion Gastrointestinal: reports: see HPI, diarrhea, nausea Genitourinary: reports: no symptoms reported Musculoskeletal: reports: no symptoms reported Integumentary: reports: no symptoms reported Neurological: reports: other ( states some confusion). denies: ataxia, dizziness/vertigo, headache/migraines Psychiatric: reports: no symptoms reported Endocrine: reports: no symptoms reported Hematologic/Lymphatic: reports: no symptoms reported Allergic/Immunologic: reports: hay fever All Other Systems: Reviewed and Negative Past History - Adult - PAST MEDICAL HISTORY-ADULT Review of Records: reports: Old Records Reviewed, Nursing Assessment Review Cardiovascular: reports: A-Fib, CHF, HTN - PRIOR SURGERIES/PROCEDURES Surgical/Procedure History: reports: pacemaker (difibulator), tonsillectomy - IMMUNIZATION STATUS Childhood Immunizations: See Nurse Assessment Flu Vaccine: See Nurse Assessment - FAMILY HISTORY Family History: reviewed, not pertinent Physical Exam-General - PHYSICAL EXAM-ADULT Initial Vital Signs Reviewed: Yes - CONSTITUTIONAL General Appearance: appears well, alert, no apparent distress - EYES Eyes: PERRL/EOMI, pink conjunctivae, anisocoria - HEAD, EARS, NOSE, MOUTH & THROAT HENMT: normocephalic/atraumatic, moist mucous membranes, normal ENT inspection, TMs normal, pharynx normal - NECK Neck: non-tender, full range of motion, supple - RESPIRATORY Respiratory: chest non-tender, lungs clear, normal breath sounds - CARDIOVASCULAR Cardiovascular: normal peripheral pulses, no edema, no gallop, no JVD, no murmur - GASTROINTESTINAL (ABDOMEN) Abdominal Exam: normal bowel sounds, non tender, soft, no organomegaly, no pulsatile mass - LYMPHATIC Lymphatic: no adenopathy - MUSCULOSKELETAL Back Exam: normal inspection, no CVA tenderness, no vertebral tenderness Extremity: normal range of motion, non-tender, normal gait, normal inspection, no pedal edema, no calf tenderness - SKIN Integumentary: normal color, normal turgor, warm/dry - NEUROLOGIC Neurologic: grossly normal - HEART Score HEART Score: History: Slightly Suspicious HEART Score: ECG: Non-Specific Repolarization Disturbance/LBBB/PM HEART Score: Age: 45-65 Years HEART Score: Risk Factors for Atherosclerotic Disease: > or = 3 Risk Factors or History of Atherosclerotic Disease Progress - PLAN OF CARE/RESULTS Progress/Plan/Lab Results: Vital Signs - 8 hr 06/24/19 08:27 Temperature 97.3 F L Pulse Rate 75 Respiratory Rate 19 Blood Pressure 105/68 O2 Sat by Pulse Oximetry 98 Laboratory Results - last 24 hr 06/24/19 06/24/19 06/24/19 08:45 08:45 08:45 WBC RBC Hgb Hct MCV MCH MCHC RDW Std Deviation Plt Count MPV Immature Gran % (Auto) Neut % (Auto) Lymph % (Auto) Harvey % (Auto) Eos % (Auto) Baso % (Auto) Immature Gran # (Auto) Neut # (Auto) Lymph # (Auto) Harvey # (Auto) Eos # (Auto) Baso # (Auto) Sodium 136 Potassium 4.6 Chloride 92 L Carbon Dioxide 30 Anion Gap 14 BUN 31 H Creatinine 1.9 H Estimated GFR/1.73 m2 36 BUN/Creatinine Ratio 16 Glucose 108 H Calculated Osmolality 279 Calcium 9.7 Total Bilirubin 2.33 H AST 48 H ALT 46 H Alkaline Phosphatase 149 H Creatine Kinase 78 Troponin T 0.024 Sud-Q-Ismrkogxkjl Pept 8444 H Total Protein 8.2 Albumin 4.3 Globulin 3.9 Albumin/Globulin Ratio 1.1 Digoxin 06/24/19 06/24/19 08:45 08:45 WBC 12.38 H RBC 5.28 Hgb 16.5 Hct 49.8 MCV 94.3 MCH 31.3 H MCHC 33.1 RDW Std Deviation 15.0 H Plt Count 156 MPV 13.6 H Immature Gran % (Auto) 0.2 Neut % (Auto) 67.2 Lymph % (Auto) 23.7 Harvey % (Auto) 8.1 Eos % (Auto) 0.4 Baso % (Auto) 0.4 Immature Gran # (Auto) 0.03 Neut # (Auto) 8.32 H Lymph # (Auto) 2.93 Harvey # (Auto) 1.00 H Eos # (Auto) 0.05 Baso # (Auto) 0.05 Sodium Potassium Chloride Carbon Dioxide Anion Gap BUN Creatinine Estimated GFR/1.73 m2 BUN/Creatinine Ratio Glucose Calculated Osmolality Calcium Total Bilirubin AST ALT Alkaline Phosphatase Creatine Kinase Troponin T Rcv-U-Lhvgpebfgsw Pept Total Protein Albumin Globulin Albumin/Globulin Ratio Digoxin 3.1 H Orders Category Date Time Status CHEST-PORTABLE [RAD] Stat Exams 06/24/19 08:34 Completed CBC WITH ELECTRONIC DIFF [HEME] Stat Lab 06/24/19 08:45 Completed CK PROFILE [SP CHEM] Stat Lab 06/24/19 08:45 Completed COMPREHENSIVE METABOLIC PANEL [CHEM] Stat Lab 06/24/19 08:45 Completed DIGOXIN [TDM] Stat Lab 06/24/19 08:45 Completed PRO B-NATRIURETIC PEPTIDE Stat Lab 06/24/19 08:45 Completed TROPONIN T Stat Lab 06/24/19 08:45 Completed 0.9% Sodium Chloride Inj [Ns] 1,000 ml Med 06/24/19 09:45 Active IV 250 mls/hr EKG [EKG] Stat Ther 06/24/19 08:33 Draft Result Diagrams: 06/24/19 08:45 06/24/19 08:45 - EKG 1 Time of EKG reading by physician:: 09:09 EKG Read and Signed by:: Julio Pickering EKG Interpretation (*Must complete 3 of following elements*): Abnormal Rate: 66 Rhythm: atrial fib. [place]: left QRS: other (widened q waves) NC Interval: prolonged ST Wave: elevated (V3) Prior EKG Comparison: changes noted (QRS flipped 1,2, V5, V6) - CONSULTS/PCP/HOSPITALIST Notification #1 *Consult/PCP/Hospitalist*: Dr Fernandez Time Discussed: 09:58 (Admit to hospitalist) #2 Consult: María castro hospitalist Time Discussed: 10:01 Consult Disposition: Will see in ED Departure - Departure Date of Disposition Decision: 06/24/19 Time of Disposition Decision: 10:01 DIAGNOSIS: Digoxin toxicity Disposition: ADMITTED INPATIENT 09 Certified Medical Emergency: Emergent Condition: Stable Referrals and Follow-Ups: Dwight Goldman MD [Primary Care Provider] - - Critical Care Note This patient required my direct & personal management of CC.: No Attestation - Physician/ BONI Attestation Patient care was provided by Advanced Practice Provider:: No The physician spent face to face time with patient:: Yes Advanced Practice Provider documentation review:: Supervising physician onsite and consulted in the evaluation and care of this patient. The physician did have a face to face encounter with the patient.
[2019-06-24 09:10] LABS: BASO# 0.05 X1000 (0.0-0.2); BASO% 0.4 % (0.0-0.8); EOS# 0.05 X1000 (0.0-0.7); EOS% 0.4 % (0.0-10.0); HEMATOCRIT 49.8 % (42.0-52.0); HEMOGLOBIN 16.5 g/dL (14.0-18.0); IMM GRAN# 0.03 X1000 (0.0-0.04); IMM GRAN% 0.2 % (0.0-0.5); LYMPH# 2.93 X1000 (1.2-3.4); LYMPH% 23.7 % (20.5-51.1); MCH 31.3 PG (27-31); MCHC 33.1 g/dL (33-37); MCV 94.3 FL (81-99); MONO% 8.1 % (1.7-9.3); MPV 13.6 FL (7.4-10.4); NEUT# 8.32 X1000 (1.4-6.5); NEUT% 67.2 % (42.2-75.2); PLT 156 X1000 (130-400); RBC 5.28 XMIL (4.7-6.1); WBC 12.38 X1000 (4.8-10.8)
--- NOTE | 2019-06-24 09:13 | Diag Imaging Result Doc PS360 ---
CHEST-PORTABLE - 06/24/2019 INDICATION: digoxin tox COMPARISON: 01/09/2017 FINDINGS: Stable pacemaker. There is cardiomegaly. There is significant pulmonary vascular congestion. There is some hazy interstitial infiltrate in the lung bases with curly B lines, compatible with pulmonary edema. No significant pleural effusion. IMPRESSION: Congestive heart failure. Electronically signed by Juan Talley 06/24/2019 9:10 AM
[2019-06-24 09:21] LABS: ALB/GLOB RATIO 1.1; ALBUMIN 4.3 g/dL (3.5-5.0); CALCIUM 9.7 mg/dL (8.8-10.2); CREATININE 1.9 mg/dL (0.7-1.2); POTASSIUM 4.6 mmol/L (3.5-5.1); TOTAL BILIRUBIN 2.33 mg/dL (0.20-1.00); TOTAL PROTEIN 8.2 g/dL (6.3-8.3)
[2019-06-24] MEDS ORDERED: NS 1,000 ML IV ONE ×2 (09:45)
[2019-06-24] MEDS ORDERED: NS IV ONE (10:59)
[2019-06-24] MEDS ORDERED: [UNRECOGNIZED DRUG - OTHER] IV ONE (10:59)
[2019-06-24] MEDS ORDERED: ZOFRAN IV PRN (11:00)
[2019-06-24] MEDS ORDERED: NS 1,000 ML IV SCH (12:15)
--- NOTE | 2019-06-24 12:22 | Diag Imaging Result Doc PS360 ---
US ABDOMEN-COMPLETE - 06/24/2019 INDICATION: elevated LFT, h/o Cholelithiasis, cirrhosis COMPARISON: 07/23/2016 FINDINGS: The gallbladder is packed with shadowing gallstones. This was the case on the prior exam as well. The common bile duct is somewhat dilated now measuring 1 cm. There is at least one small echogenicity in the common bile duct, this may represent a common bile duct stone. Liver echotexture is grossly normal. The pancreas, spleen, and both kidneys are normal. The spleen measures 9.7 x 4.1 cm. No free fluid. Aorta, IVC, and main portal vein are patent. IMPRESSION: 1. Long-standing gallstones in the gallbladder. 2. Common bile duct dilation. There is a small echogenicity in the common bile duct which may reflect a stone. There may be distal common bile duct obstruction causing the dilation. Electronically signed by Juan Talley 06/24/2019 12:20 PM
[2019-06-24 17:20] LABS: HEMOGLOBIN A1C 6.3 % (4.8-6.0)
--- NOTE | 2019-06-24 17:35 | HISTORY AND PHYSICAL ---
CHIEF COMPLAINT: My doctor told me I had a high digoxin level. HISTORY OF PRESENT ILLNESS: This is a 64-year-old gentleman with a history of atrial fibrillation, congestive heart failure with an EF of 15% in 2017, diabetes mellitus type 2, hypertension, and cirrhosis. He presents to the emergency room after being called by Dr. Fernandez, his ton container shipper, after having been found to have an elevated digoxin level. The patient states that he has been tired over the last 2 to 3 weeks. He is not sleeping well. He has had diarrhea over the last 2 to 3 days and his reports confusion and agitation. Digoxin level was 3.1. PAST MEDICAL HISTORY: 1. Systolic heart failure with an ejection fraction of 15% in 2017. 2. Diabetes mellitus type 2. 3. Severe nonischemic cardiomyopathy. 4. Hypertension. 5. Hyperlipidemia. 6. Paroxysmal atrial fibrillation. 7. Status post pacemaker defibrillator. PAST SURGICAL HISTORY: Pacemaker and tonsillectomy. SOCIAL HISTORY: He smokes about a half a pack a day. He denies alcohol or illicit drug use. He is and lives with his . ALLERGIES: Zinc. HOME MEDICATIONS: A list will be obtained by the nursing staff and once verified we will review and restart as appropriate. REVIEW OF SYSTEMS: Discussed with the patient with pertinent positives being anorexia, weight loss, all food tasting bad, upper respiratory symptoms of runny nose, postnasal drip, confusion, dyspnea on exertion that has increased over the past 2 to 3 weeks. The patient reports having to take more frequent rest periods during activities of daily living. He denied any syncope or dizziness, any chest pain or palpitations, temperature, a productive cough, any vomiting, constipation, black or bloody vomitus or stools, any hematuria, dysuria, frequency, urgency. PHYSICAL EXAMINATION: GENERAL: This is a 64-year-old gentleman who is sitting up in the bed in no distress. VITAL SIGNS: Blood pressure is 105/68 with a heart rate of 75, respirations are 18, temperature 97.3 degrees, with room air saturations 95 to 98%. EYES: Pupils are equal, round, react to light. EOMs are intact. Sclerae anicteric. HENT: Head is normocephalic, atraumatic. Mucous membranes are moist. NECK: Supple with trachea midline. No JVD. CARDIOVASCULAR: Regular rate and rhythm. S1, S2 appreciated. He has no lower extremity edema. Calves are nontender bilaterally with peripheral pulses palpable x4 extremities. PULMONARY: Breath sounds are clear. No increased work of breathing noted. Chest rises and falls symmetrically with respiration. GASTROINTESTINAL: Abdomen is soft, nontender, nondistended. Bowel sounds in all 4 quadrants. GENITOURINARY: No CVA nor suprapubic tenderness. NEUROLOGIC: He is alert and oriented x3. SKIN: Warm and dry. LABS: WBC is 12.3 with hemoglobin 16.5, hematocrit 49.8, and platelets of 156,000. Sodium 136, potassium 4.6, BUN 31, creatinine 1.9, with a glucose of 108. Total bilirubin is 2.3 with AST of 48, ALT 46, and alkaline phosphatase of 149. Digoxin levels 3.1. Chest x-ray reveals congestive heart failure with a hazy interstitial infiltrate in the lung bases with Iker B-lines compatible with pulmonary edema. ASSESSMENT AND PLAN: 1. Digitoxicity. Give 120 mg of Digibind. We will repeat a digoxin level in the morning. He will be placed on telemetry. Of course we will hold his home medication. 2. Systolic congestive heart failure with an ejection fraction of 15% in 2017. The daily weights, strict I's and O's. Will continue the appropriate home medications. 3. History of atrial fibrillation. We will continue his Eliquis. He will be placed on telemetry. 4. Severe nonischemic cardiomyopathy. 5. Diabetes mellitus type 2. Pattern blood glucose with sliding scale insulin. The patient states that this diagnosis is a mistake. He does not have diabetes. We will check a hemoglobin A1c. We will continue with pattern blood glucose and sliding scale insulin at present. 6. Elevated liver function tests. In reviewing the patient's records, he had a CT of the abdomen and pelvis in 2016 which was read as slight liver atrophy which may reflect cirrhosis. We will repeat an abdominal ultrasound. Repeat hepatic profile in the morning. 7. Reported gallstones. The stated that in the past the patient had been told that he needed to have his gallbladder out, but they refused to do this due to his cardiac function. We will repeat an abdominal ultrasound today. 8. For deep vein thrombosis prophylaxis, of course, we are continue his Eliquis and for GI prophylaxis, Prilosec. Further treatments pending hospital course. This plan was discussed with Dr. Morse. Dictated by ROBIN Bartlett for Nilo Morse MD cc: ROBIN Bartlett MD I agree with most components of history, physical, assessment and plan. A separate addendum has been dictated. MTDD
[2019-06-24] MEDS: ELIQUIS PO SCH (20:33)
[2019-06-24] MEDS: DESYREL PO SCH (20:33)
[2019-06-24] MEDS: COREG PO SCH (20:33)
[2019-06-24] MEDS: HUMALOG SUBQ SCH (21:24)
--- NOTE | 2019-06-25 04:52 | HISTORY AND PHYSICAL ---
ADDENDUM: Addendum to history and physical dictated by the nurse practitioner. I agree with most components of history, physical, assessment, and plan. HISTORY: In brief, Mr. English is a 64-year-old man with past medical history of nonischemic cardiomyopathy with ejection fraction of 20% status post AICD, chronic atrial fibrillation on anticoagulation, chronically elevated liver function tests thought to be related to congestive hepatopathy or cardiac cirrhosis, cholecystolithiasis managed nonoperatively because of his poor heart condition, who was called by the master ship's office for elevated digoxin level and was advised to come to the emergency room. Apparently, patient has been experiencing malaise, fatigue, poor appetite, nausea, abdominal cramps, and 2 to 3 days of diarrhea since about 2 to 4 weeks' duration. He also had decreased appetite. He did not have any visual disturbance. His master ship's office where he went for AICD interrogation 2 days prior to current presentation had drawn digoxin level which was elevated, so he was advised to come to the hospital for getting digoxin binder. In the emergency room, he was hemodynamically stable. Subjectively, he is denying any chest pain, shortness of breath, nausea, or vomiting at the moment or abdominal cramps. He is feeling better. We discussed about dehydration. We discussed about digoxin toxicity. We also discussed about age-appropriate cancer screening including possibly colonoscopy since he reported weight loss. The patient's is at bedside. OBJECTIVE: Vital Signs: Temperature 97.6 degrees, pulse 67, respiratory blood pressure 104/69, saturating 96 on room air. General: Does not appear in acute distress. Oral cavity is moist. Lungs: Air entry bilaterally equal. No wheeze, rhonchi, or crackles. Cardiovascular: S1, S2. Irregularly irregular. No murmur, rub, or gallop. He has left-sided chest pacemaker. Abdomen: Soft, nontender. Normoactive bowel sounds. Extremities: Mild lower extremity edema. Skin: He does have some healed guttate psoriasis lesions on lower abdominal wall. LABORATORY DATA: Suggestive of mild leukocytosis. Normal hemoglobin. He does have acute kidney injury on what appears to be chronic kidney disease stage 3 or could just be close to his baseline. He does have mild elevation of total bilirubin with mild transaminitis and elevated proBNP. His digoxin level is 3.1. Electrocardiogram suggests atrial fibrillation, left axis deviation, nonspecific intraventricular block, which are old findings. ASSESSMENT AND PLAN: 1. Subacute digoxin toxicity. 2. Transaminitis and hyperbilirubinemia due to congestive hepatopathy or cardiac cirrhosis versus choledocholithiasis. 3. History of cholecystolithiasis and now suspected choledocholithiasis without any clinical features of acute cholecystitis. 4. Chronic atrial fibrillation on anticoagulation. 5. Nonischemic cardiomyopathy with EF 20% s/p AICD. 6. Chronic kidney disease stage 3. PLAN: We will give him digoxin antibody and gentle hydration. We will recheck digoxin levels tomorrow. Plan of care discussed with the patient and his at bedside. Their questions have been answered. cc: Nilo Morse MD MTDD
[2019-06-25 06:08] LABS: ALB/GLOB RATIO 1.2; ALBUMIN 3.6 g/dL (3.5-5.0); BASO# 0.03 X1000 (0.0-0.2); BASO% 0.2 % (0.0-0.8); CALCIUM 8.6 mg/dL (8.8-10.2); CREATININE 2.2 mg/dL (0.7-1.2); EOS# 0.02 X1000 (0.0-0.7); EOS% 0.1 % (0.0-10.0); HEMOGLOBIN 14.9 g/dL (14.0-18.0); IMM GRAN# 0.04 X1000 (0.0-0.04); IMM GRAN% 0.2 % (0.0-0.5); LYMPH# 1.72 X1000 (1.2-3.4); LYMPH% 10.7 % (20.5-51.1); MCH 31.8 PG (27-31); MCHC 33.9 g/dL (33-37); MONO# 1.63 X1000 (0.11-0.59); MONO% 10.2 % (1.7-9.3); MPV 13.5 FL (7.4-10.4); NEUT% 78.6 % (42.2-75.2); PLT 128 X1000 (130-400); POTASSIUM 4.7 mmol/L (3.5-5.1); RBC 4.68 XMIL (4.7-6.1); TOTAL BILIRUBIN 3.08 mg/dL (0.20-1.00); TOTAL PROTEIN 6.6 g/dL (6.3-8.3); WBC 16.04 X1000 (4.8-10.8)
[2019-06-25 06:15] LABS: DIGOXIN 3.6 ng/mL (0.9-2.0)
[2019-06-25] MEDS: PRILOSEC PO SCH (06:38)
[2019-06-25] MEDS: HUMALOG SUBQ SCH ×4 (06:39→21:25)
--- NOTE | 2019-06-25 07:22 | EKG Report ---
Test Performed on : 06/25/2019 06:54:01 AM Test Reason : Follow up heart rhythm Blood Pressure : / mmHG Vent. Rate : 067 BPM Atrial Rate : 055 BPM P-R Int : 000 ms QRS Dur : 166 ms QT Int : 434 ms P-R-T Axes : 000 -88 075 degrees QTc Int : 458 ms Atrial fibrillation. Left axis deviation Nonspecific intraventricular block Possible Lateral infarct , age undetermined Abnormal ECG When compared with ECG of 24-JUN-2019 08:32, (Unconfirmed) No significant change was found Confirmed by Candis COLIN, Brandt Fitch ([id number]) on 06/25/2019 8:25:33 AM
--- NOTE | 2019-06-25 07:56 | PROGRESS NOTE ---
DATE: 06/25/2019 INTERVAL HISTORY: No acute events overnight. The patient did have a drop in his saturation, and was requiring nasal cannula. However, he was not in any respiratory distress. SUBJECTIVE: He is feeling much better today than before. He is denying any chest pain, shortness of breath, cough. He denies any nausea, vomiting, or abdominal pain. He had a good dinner yesterday. He denies any postprandial bloating or any symptoms. No urination problem. I discussed with him about his abnormal liver function test, abnormal kidneys. I answered all of his questions. OBJECTIVE: Vital Signs: Temperature 98.1 degrees, pulse 67, respiratory rate 15, blood pressure 97/73, saturating 96% on room air. General: Does not appear in any acute distress. HEENT: Oral cavity is moist. Lungs: Air entry bilaterally equal. No wheeze or rhonchi. Mild inspiratory crackles. Cardiovascular: S1, S2 normal. Irregularly irregular. No murmur, rub, or gallop. Left pectoral region had AICD. Abdomen: Obese, soft, nontender. Mild bilateral lower extremity edema. No scleral icterus. LABORATORY DATA: Labs suggestive of leukocytosis. Normal hemoglobin. Slight decrease in platelet count. He does have hyponatremia, hypochloremia, elevated BUN and creatinine, and worsening transaminitis. His digoxin levels are still elevated. MICROBIOLOGY: No data. IMAGING: Abdominal x-ray had gallstones. There was CBD dilatation, and there was a possibility of CBD stone. ASSESSMENT AND PLAN: 1. Subacute digoxin toxicity, status post 120 mg of digoxin antibody intravenously. Continue to have telemetric monitoring. Electrocardiogram suggests atrial fibrillation, nonspecific intraventricular block, which is his baseline. Follow up serial digoxin level, and continue to hold digoxin. 2. Transaminitis, hyperbilirubinemia, cholecystolithiasis, and suspected choledocholithiasis, without signs of acute cholecystitis or acute cholangitis. He does have leukocytosis though. Previously in 2016, endoscopic retrograde cholangiopancreatography and cholecystectomy were deferred because of his poor heart condition. Currently, he does not have any symptoms of cholecystitis. I will follow up with liver function tests tomorrow, and will monitor him for signs of acute cholangitis. Based on it, I will consider consulting Gastroenterology as well as surgical team in the future. 3. Nonischemic cardiomyopathy with ejection fraction of 20% in 2017, status post automatic implantable cardioverter-defibrillator. Continue home carvedilol, furosemide, and add metolazone as tolerated. 4. History of chronic atrial fibrillation. Continue home Eliquis and amiodarone. Continue to hold digoxin. Will appreciate Cardiology recommendation about future need of digoxin. 5. Chronic kidney disease stage 3, appeared to be stable. He does have a component of acute kidney injury. I will monitor his BMP tomorrow. 6. Disposition. I will continue to monitor the patient inside the hospital, and consult Cardiology for need for further digoxin antibody. Plan of care discussed with the patient, and his questions have been answered. cc: Nilo Morse MD
[2019-06-25] MEDS ORDERED: SAMSCA PO ONE (08:09)
[2019-06-25] MEDS ORDERED: CORDARONE PO SCH (09:00)
[2019-06-25] MEDS: THERA M PLUS PO SCH (09:05)
[2019-06-25] MEDS: COREG PO SCH ×2 (09:05→20:53)
[2019-06-25] MEDS: LASIX PO SCH (09:05)
[2019-06-25] MEDS: ELIQUIS PO SCH ×2 (09:05→20:53)
[2019-06-25 10:20] LABS: CHOLESTEROL 95 mg/dL (0-200); HDL 23 mg/dL (35-55); LDL 59 mg/dL; TRIGLYCERIDES 66 mg/dL (39-160); URIC ACID 11.2 mg/dL (3.4-7.0); VLDL 13 mg/dL
--- NOTE | 2019-06-25 16:10 | CARDIOLOGY CONSULTATION ---
DATE: 06/25/2019 REQUESTING PHYSICIAN: Hospitalist service. REASON FOR CONSULT: Digoxin toxicity. CHIEF COMPLAINT: Weakness, fatigue. HISTORY: Mr. English is a pleasant, 64-year-old male, patient of mine who called my office last weekend complaining of increasing fatigue and tiredness. We requested blood work and blood work was reported to me on Tuesday at 6 a.m. from [facility] indicating that his digoxin level was elevated at 3.4 ng/mL. That was a toxic level and the patient was symptomatic. I referred the patient to the emergency department where he was seen. They did a chest x-ray that showed congestive heart failure. EKG showed atrial fibrillation with a nonspecific IVCD. The chest x-ray also revealed the presence of a single chamber ICD. The patient's blood work showed a sodium 136, potassium 4.6, BUN 31, creatinine 1.9. White cell count was 12,380, hemoglobin was 16.5. Pro BNP was elevated at 8,444 pg/mL consistent with decompensated CHF. Admission to the hospital was recommended for further management. The digoxin level was repeated in the ER and it was 3.19 ng/mL which is still very high. Digibind was recommended and it was administered by the ER Physician. This morning, the patient is feeling a little better. He is not as tired. However, he still feels fatigued. He is not very short of breath. PAST HISTORY: Positive for chronic systolic heart failure. This has been going on for several years. He also has a history of paroxysmal atrial fibrillation and lately he has converted back into atrial fibrillation after a successful cardioversion. He declined having a subsequent cardioversion. He has a long-term history of hypertension in the past, diabetes mellitus type 2. He has had psoriasis vulgaris and at some point was treated with methotrexate. However, due to liver dysfunction, he did not resume neither that medication nor Humira that was recommended to him. SURGICAL HISTORY: Positive for implantation of ICD for sudden prophylaxis. I believe that was done in [place]. He has had a tonsillectomy. SOCIAL HISTORY: He is . He is disabled. He has 2 grown up children. Not a smoker. He lives with his . FAMILY HISTORY: Father had coronary heart disease. HOME MEDICATIONS: Listed at the time of this admission included amiodarone 200 daily, Eliquis 5 mg twice a day, carvedilol 3.125 twice a day, digoxin he was taking 0.25 mg daily, furosemide 40 mg daily, lisinopril 2.5 mg daily, magnesium oxide 400 twice a day, metolazone 2.5 as directed, trazodone 50 mg at bedtime, multivitamins daily, potassium chloride 2 tablets twice a day. ALLERGIES: He is allergic to zinc. REVIEW OF SYSTEMS: He has not had a whole lot of swelling lately. His main complaint has been fatigue and tiredness. Some exertional dyspnea. No chest pains. No syncope. No defibrillator withdrawals. He does have a [facility] device. PHYSICAL EXAMINATION: Vital signs: Today blood pressure is 108/78, temperature 97.9 degrees, pulse 68, respirations 23. General: He is awake, alert, appears to be chronically ill. Neck: Neck veins are slightly prominent. Chest: Clear to auscultation and percussion. Heart: Sounds are slightly irregular. I do not hear any definite gallop or murmur. Abdomen: Nontender. There is no hepatomegaly. Extremities: Showed decreased pulses. No peripheral edema. Neurologic: Nonfocal. Moves 4 extremities. IMPRESSIONS: 1. Patient who presented with digoxin toxicity. He has been treated with Digibind. 2. Hyponatremia. 3. Chronic systolic heart failure, functional class 3 to 4. 4. Permanent atrial fibrillation. 5. Status post automatic implantable cardioverter defibrillator implantation. RECOMMENDATION: At this time, we will continue with optimization of his medical therapy. I am going to give him tolvaptan to optimize his sodium. We will see how he does. We may want to cut down on his amiodarone to a minimum dose of 100 mg daily. We will see how things go. Further advice will be forthcoming. cc: Rory Fernandez MD [facility], [place]
[2019-06-25] MEDS ORDERED: TYLENOL PO PRN (16:48)
[2019-06-25] MEDS: DESYREL PO SCH (20:53)
[2019-06-26 05:44] LABS: BASO# 0.03 X1000 (0.0-0.2); BASO% 0.3 % (0.0-0.8); EOS# 0.06 X1000 (0.0-0.7); EOS% 0.6 % (0.0-10.0); HEMATOCRIT 40.4 % (42.0-52.0); HEMOGLOBIN 13.7 g/dL (14.0-18.0); IMM GRAN# 0.02 X1000 (0.0-0.04); IMM GRAN% 0.2 % (0.0-0.5); LYMPH# 1.64 X1000 (1.2-3.4); LYMPH% 15.5 % (20.5-51.1); MCH 31.6 PG (27-31); MCHC 33.9 g/dL (33-37); MCV 93.1 FL (81-99); MONO# 0.99 X1000 (0.11-0.59); MONO% 9.3 % (1.7-9.3); MPV 13.3 FL (7.4-10.4); NEUT# 7.87 X1000 (1.4-6.5); NEUT% 74.1 % (42.2-75.2); PLT 122 X1000 (130-400); RBC 4.34 XMIL (4.7-6.1); WBC 10.61 X1000 (4.8-10.8)
[2019-06-26 06:15] LABS: ALB/GLOB RATIO 1.1; ALBUMIN 3.2 g/dL (3.5-5.0); CALCIUM 8.9 mg/dL (8.8-10.2); CREATININE 2.1 mg/dL (0.7-1.2); DIGOXIN 2.3 ng/mL (0.9-2.0); POTASSIUM 3.7 mmol/L (3.5-5.1); TOTAL BILIRUBIN 2.88 mg/dL (0.20-1.00); TOTAL PROTEIN 6.1 g/dL (6.3-8.3)
[2019-06-26] MEDS: HUMALOG SUBQ SCH (06:35)
[2019-06-26] MEDS: PRILOSEC PO SCH ×2 (06:38→06:46)
--- NOTE | 2019-06-26 07:52 | EKG Report ---
Test Performed on : 06/26/2019 07:07:34 AM Test Reason : Follow up heart rhythm/digoxin toxicity Blood Pressure : / mmHG Vent. Rate : 060 BPM Atrial Rate : 078 BPM P-R Int : 000 ms QRS Dur : 158 ms QT Int : 446 ms P-R-T Axes : 000 -83 089 degrees QTc Int : 446 ms Atrial fibrillation. with occasional ventricular-paced complexes Left axis deviation Nonspecific intraventricular block Possible Lateral infarct , age undetermined Abnormal ECG When compared with ECG of 25-JUN-2019 06:54, Electronic ventricular pacemaker has replaced Atrial fibrillation. Confirmed by Candis COLIN, Brandt Fitch ([id number]) on 06/26/2019 9:09:06 AM
[2019-06-26 08:22] VITALS: BP 103/68
[2019-06-26] MEDS: ELIQUIS PO SCH (08:26)
[2019-06-26] MEDS: COREG PO SCH (08:26)
[2019-06-26] MEDS: THERA M PLUS PO SCH (08:26)
[2019-06-26] MEDS: LASIX PO SCH (08:26)
[2019-06-26] MEDS ORDERED: CORDARONE PO SCH (09:00)
--- NOTE | 2019-06-26 14:27 | DISCHARGE SUMMARY ---
ADMISSION DATE: 06/25/2019 DISCHARGE DATE: 06/26/2019 DISCHARGE DISPOSITION: Home with family. DISCHARGE CONDITION: Hemodynamically stable. Alert and oriented x3. Denies any more fatigue, shortness of breath. His appetite has improved. He is feeling stronger. DISCHARGE INSTRUCTIONS: He is supposed to get repeat liver function tests done within 5 days. He is to discuss the results with his regular doctor. He also needs to discuss with his regular doctor about future need for gallbladder removal if necessary. DISCHARGE DIAGNOSES: 1. Subacute digoxin toxicity. 2. Transaminitis, hyperbilirubinemia, cholecystolithiasis, and suspected choledocholithiasis without any symptoms. 3. Hyponatremia. 4. RUBÉN OTHER DIAGNOSES: 1. Nonischemic cardiomyopathy with ejection fraction of 20% status post AICD. 2. Chronic atrial fibrillation with nonspecific intraventricular block. 3. Chronic kidney disease stage 3 to stage IV. 4. Chronic systolic congestive heart failure. 5. Essential hypertension. 6. Hyperlipidemia. DISCHARGE MEDICATIONS: 1. CMP lab slip has been provided to be done within 5 days. 2. Trazodone 50 mg at nighttime. 3. Potassium chloride 40 mEq b.i.d., which is his home medication. 4. Magnesium oxide 400 mg b.i.d. 5. Metolazone 2.5 mg Tuesday, Tuesday, Tuesday. 6. Carvedilol 3.125 mg b.i.d. 7. Amiodarone 200 mg daily. 8. Apixaban 5 mg b.i.d. 9. Furosemide 40 mg daily. 10. Multivitamin 1 tablet in the morning time. 11. Lisinopril 2.5 mg daily. VITALS: At the time of discharge, temperature 97.6 degrees, pulse 59, respiratory rate 15, blood pressure 90/60, saturating 98% on room air. PHYSICAL EXAMINATION: General: He does not appear in any acute distress. Oral cavity is moist. Lungs: Air entry bilaterally equal. No wheeze, rhonchi, crackles. Cardiovascular: S1, S2 normal. Irregularly irregular. No murmur, rub, or gallop. He has left-sided pectoral region AICD. Abdomen: Obese, soft, nontender. Mild bilateral lower extremity edema. No scleral icterus. No hepatosplenomegaly. He is alert and oriented x3. SIGNIFICANT LABS: During hospital admission and discharge, WBC 23025, hemoglobin 13.7, platelet 122,000. Sodium 135, chloride 94, BUN 44, creatinine 2.1. His total bilirubin is 2.8. His AST is 245, ALT 284. Alkaline phosphatase has normalized at 120. Digoxin level was 2.3, which was 3.1 on admission. No new microbiological data. Chest x-ray on admission had congestive heart failure. Abdomen ultrasound has long-standing gallstones in the gallbladder and there was CBD dilatation of about 1 cm, though he did not have any symptoms of it. There was a small echogenicity in the common bile duct which may reflect a stone. There was also a distal common bile duct obstruction causing the dilatation. Cardiovascular EKG had atrial fibrillation with occasional ventricular paced complexes, left axis deviation, nonspecific intraventricular block. HOSPITAL COURSE SUMMARY: Mr. English is a 64-year-old man who has been experiencing symptoms of nausea, abdominal cramps, poor appetite, fatigue, malaise of about 2-3 days duration. He also had diarrhea since about 2 to 4 weeks duration and decreased appetite. 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 It was thought that he was experiencing subacute digoxin toxicity, so he was advised to come to the hospital for further management. He was treated with digoxin antibody, following which he started feeling better and his appetite has improved. He did not have any abdominal pains, nausea, or vomiting. His digoxin was held at the time of discharge. His amiodarone dose was decreased. While inside the hospital, he was also found to have elevated liver function tests, which is a chronic problem since 2016 where he was detected to have gallstones. This time around, there was also a small echogenicity noticed in the common bile duct, though he did not have any symptoms whatsoever of his cholelithiasis. It was decided to manage it conservatively. Previously in 2016, gallbladder removal was deferred because of his nonischemic cardiomyopathy, poor heart function. It was decided to give him comprehensive metabolic panel lab and have him follow up with his outpatient provider to see if he would need outpatient gallbladder removal. TIME SPENT: More than 30 minutes were spent discharging the patient. All of his questions satisfactorily answered. cc: MD BAUTISTA Peters
== END 2019-06-26 10:03 | disposition home or self-care (01) | DRG 392 ==
LOC: 2N 08:25 → ED 08:25
PROVIDERS: ATTEND Internal Medicine

== ENCOUNTER 2019-08-28 17:45 | Inpatient (IN) ==
[2019-08-28 19:50] LABS: BASO# 0.01 X1000 (0.0-0.2); BASO% 0.1 % (0.0-0.8); HEMATOCRIT 41.2 % (42.0-52.0); LYMPH# 0.98 X1000 (1.2-3.4); LYMPH% 7.6 % (20.5-51.1); MCH 30.5 PG (27-31); MCHC 31.6 g/dL (33-37); MCV 96.7 FL (81-99); MONO# 0.78 X1000 (0.11-0.59); MPV 13.3 FL (7.4-10.4); NEUT# 11.18 X1000 (1.4-6.5); NEUT% 86.3 % (42.2-75.2); PLT 96 X1000 (130-400); RBC 4.26 XMIL (4.7-6.1); RDW 18.1 % (11.5-14.5); WBC 12.95 X1000 (4.8-10.8)
[2019-08-28 19:52] LABS: PROTIME 60.6 Seconds (11.0-16.0)
[2019-08-28 19:53] LABS: INR 6.66
[2019-08-28 20:10] LABS: ALB/GLOB RATIO 1.4; ALBUMIN 3.8 g/dL (3.5-5.0); CALCIUM 9.7 mg/dL (8.8-10.2); POTASSIUM 5.9 mmol/L (3.5-5.1); TOTAL BILIRUBIN 3.55 mg/dL (0.20-1.00); TOTAL PROTEIN 6.5 g/dL (6.3-8.3)
[2019-08-29 01:21] LABS: URINE SOURCE CLEAN CATCH
[2019-08-29 01:34] LABS: BILIRUBIN URINE NEGATIVE (NEGATIVE); BLOOD URINE TRACE (NEGATIVE); COLOR YELLOW; GLUCOSE URINE NEGATIVE (NEGATIVE); KETONE URINE NEGATIVE (NEGATIVE); LEUKOCYTES URINE NEGATIVE (NEGATIVE); NITRITE URINE NEGATIVE (NEGATIVE); PH URINE 5.5; PROTEIN URINE TRACE mg/dL (NEGATIVE); SP GRAVITY URINE 1.011; TURBIDITY URINE CLEAR (CLEAR); UR EPITHELIAL CELLS <10 /HPF (<10); URINE BACTERIA NEGATIVE /HPF; URINE RBC <10 /HPF (<10); URINE WBC <10 /HPF (<10); UROBILINOGEN URINE NORMAL (NORMAL)
[2019-08-29 06:09] LABS: BASO# 0.01 X1000 (0.0-0.2); BASO% 0.1 % (0.0-0.8); HEMOGLOBIN 12.3 g/dL (14.0-18.0); IMM GRAN# 0.04 X1000 (0.0-0.04); IMM GRAN% 0.2 % (0.0-0.5); LYMPH# 1.21 X1000 (1.2-3.4); LYMPH% 6.4 % (20.5-51.1); MCH 29.1 PG (27-31); MCHC 32.4 g/dL (33-37); MCV 89.8 FL (81-99); MONO# 1.04 X1000 (0.11-0.59); MONO% 5.5 % (1.7-9.3); MPV 12.8 FL (7.4-10.4); NEUT# 16.58 X1000 (1.4-6.5); NEUT% 87.8 % (42.2-75.2); PLT 123 X1000 (130-400); RBC 4.23 XMIL (4.7-6.1); RDW 17.2 % (11.5-14.5); WBC 18.88 X1000 (4.8-10.8)
[2019-08-29 06:38] LABS: ALB/GLOB RATIO 1.2; ALBUMIN 3.2 g/dL (3.5-5.0); CALCIUM 8.9 mg/dL (8.8-10.2); CREATININE 2.4 mg/dL (0.7-1.2); MAGNESIUM 2.1 mg/dL (1.5-2.7); POTASSIUM 4.9 mmol/L (3.5-5.1); TOTAL BILIRUBIN 2.74 mg/dL (0.20-1.00); TOTAL PROTEIN 5.8 g/dL (6.3-8.3)
[2019-08-29 08:02] LABS: BANDS 2 % (0-1); LYMPHS 10 % (21-51); MONO 6 % (1-9); SEGS 82 % (42-75)
[2019-08-29 08:15] LABS: HEMOGLOBIN A1C 6.3 % (4.8-6.0)
[2019-08-29 08:31] LABS: INR 4.98; PROTIME 48.1 Seconds (11.0-16.0)
[2019-08-29 17:54] LABS: CALCIUM 9.2 mg/dL (8.8-10.2); CREATININE 2.2 mg/dL (0.7-1.2); POTASSIUM 3.6 mmol/L (3.5-5.1)
[2019-08-29 21:08] LABS: UR CREAT RANDOM 12.8 mg/dL (14-26); UR PROT RANDOM < 4.0 mg/dL; UR SODIUM 58 mmoll; UR UREA NITROGEN RANDOM 188 mg/dL
[2019-08-30 06:15] LABS: BASO# 0.01 X1000 (0.0-0.2); BASO% 0.1 % (0.0-0.8); EOS# 0.01 X1000 (0.0-0.7); EOS% 0.1 % (0.0-10.0); HEMATOCRIT 38.5 % (42.0-52.0); HEMOGLOBIN 12.7 g/dL (14.0-18.0); IMM GRAN# 0.05 X1000 (0.0-0.04); IMM GRAN% 0.4 % (0.0-0.5); LYMPH# 1.63 X1000 (1.2-3.4); LYMPH% 13.7 % (20.5-51.1); MCH 29.5 PG (27-31); MCV 89.5 FL (81-99); MONO# 0.68 X1000 (0.11-0.59); MONO% 5.7 % (1.7-9.3); MPV 12.3 FL (7.4-10.4); PLT 117 X1000 (130-400); RDW 17.5 % (11.5-14.5); WBC 11.88 X1000 (4.8-10.8)
[2019-08-30 06:20] LABS: INR 1.73; PROTIME 20.6 Seconds (11.0-16.0)
[2019-08-30 06:37] LABS: ALB/GLOB RATIO 1.1; ALBUMIN 3.2 g/dL (3.5-5.0); CALCIUM 9.2 mg/dL (8.8-10.2); CREATININE 2.3 mg/dL (0.7-1.2); MAGNESIUM 1.9 mg/dL (1.5-2.7); POTASSIUM 3.2 mmol/L (3.5-5.1); TOTAL BILIRUBIN 2.51 mg/dL (0.20-1.00); TOTAL PROTEIN 6.1 g/dL (6.3-8.3)
[2019-08-30 18:37] LABS: ALBUMIN 3.2 g/dL (3.5-5.0); CREATININE 1.8 mg/dL (0.7-1.2); MAGNESIUM 1.7 mg/dL (1.5-2.7); POTASSIUM 3.1 mmol/L (3.5-5.1)
[2019-08-31 06:28] LABS: BASO# 0.01 X1000 (0.0-0.2); BASO% 0.1 % (0.0-0.8); EOS# 0.03 X1000 (0.0-0.7); EOS% 0.2 % (0.0-10.0); HEMATOCRIT 43.4 % (42.0-52.0); HEMOGLOBIN 13.9 g/dL (14.0-18.0); IMM GRAN# 0.04 X1000 (0.0-0.04); IMM GRAN% 0.3 % (0.0-0.5); LYMPH# 1.68 X1000 (1.2-3.4); LYMPH% 11.4 % (20.5-51.1); MCH 29.3 PG (27-31); MCV 91.4 FL (81-99); MONO% 6.1 % (1.7-9.3); MPV 11.8 FL (7.4-10.4); NEUT# 12.04 X1000 (1.4-6.5); NEUT% 81.9 % (42.2-75.2); PLT 164 X1000 (130-400); RBC 4.75 XMIL (4.7-6.1); RDW 18.3 % (11.5-14.5)
[2019-08-31 06:56] LABS: ALB/GLOB RATIO 1.2; ALBUMIN 3.7 g/dL (3.5-5.0); CALCIUM 9.2 mg/dL (8.8-10.2); CREATININE 1.8 mg/dL (0.7-1.2); POTASSIUM 4.1 mmol/L (3.5-5.1); TOTAL BILIRUBIN 2.77 mg/dL (0.20-1.00); TOTAL PROTEIN 6.8 g/dL (6.3-8.3)
[2019-09-01 07:19] LABS: MAGNESIUM 1.7 mg/dL (1.5-2.7); PHOSPHORUS 3.2 mg/dL (2.7-4.5)
[2019-09-01 07:26] LABS: ALB/GLOB RATIO 1.1; ALBUMIN 3.3 g/dL (3.5-5.0); CREATININE 1.6 mg/dL (0.7-1.2); POTASSIUM 3.2 mmol/L (3.5-5.1); TOTAL BILIRUBIN 3.97 mg/dL (0.20-1.00); TOTAL PROTEIN 6.3 g/dL (6.3-8.3)
[2019-09-01 07:49] LABS: HEMATOCRIT 38.9 % (42.0-52.0); HEMOGLOBIN 12.7 g/dL (14.0-18.0); MCH 29.9 PG (27-31); MCHC 32.6 g/dL (33-37); MCV 91.5 FL (81-99); MPV 12.7 FL (7.4-10.4); RBC 4.25 XMIL (4.7-6.1); RDW 18.1 % (11.5-14.5); WBC 10.64 X1000 (4.8-10.8)
[2019-09-02 06:39] LABS: MAGNESIUM 2.2 mg/dL (1.5-2.7); PHOSPHORUS 5.3 mg/dL (2.7-4.5)
[2019-09-02 06:50] LABS: INR 1.94; PROTIME 22.6 Seconds (11.0-16.0)
[2019-09-02 07:13] LABS: ALB/GLOB RATIO 1.2; ALBUMIN 3.5 g/dL (3.5-5.0); CREATININE 2.1 mg/dL (0.7-1.2); POTASSIUM 5.1 mmol/L (3.5-5.1); TOTAL BILIRUBIN 5.75 mg/dL (0.20-1.00); TOTAL PROTEIN 6.5 g/dL (6.3-8.3)
[2019-09-02 08:50] LABS: BASO# 0.01 X1000 (0.0-0.2); BASO% 0.1 % (0.0-0.8); HEMATOCRIT 42.4 % (42.0-52.0); HEMOGLOBIN 13.4 g/dL (14.0-18.0); IMM GRAN# 0.06 X1000 (0.0-0.04); IMM GRAN% 0.4 % (0.0-0.5); LYMPH# 0.95 X1000 (1.2-3.4); LYMPH% 5.8 % (20.5-51.1); MCH 29.5 PG (27-31); MCHC 31.6 g/dL (33-37); MCV 93.4 FL (81-99); MONO# 1.77 X1000 (0.11-0.59); MONO% 10.9 % (1.7-9.3); MPV 12.7 FL (7.4-10.4); NEUT# 13.46 X1000 (1.4-6.5); NEUT% 82.8 % (42.2-75.2); PLT 123 X1000 (130-400); RBC 4.54 XMIL (4.7-6.1); RDW 18.5 % (11.5-14.5); WBC 16.25 X1000 (4.8-10.8)
[2019-09-02 09:08] LABS: ALBUMIN 3.5 g/dL (3.5-5.0); CALCIUM 8.9 mg/dL (8.8-10.2); CREATININE 2.4 mg/dL (0.7-1.2); POTASSIUM 4.9 mmol/L (3.5-5.1)
[2019-09-02 09:13] LABS: ALLEN TEST YES; BE -9.5 mmoll (-3.0-3.0); BLOOD TYPE ARTERIAL; HCO3-(ACT) 17.5 mmoll (20.0-26.0); METHB 0.7 % (0.0-1.5); O2HB 95.8 % (95.0-99.0); PCO2(98.6) 23 mmHg (35-45); PO2(98.6) 108 mmHg (60-100); SAMPLE BLOOD; SAO2 99.5 % (95.0-100.0); pH(98.6) 7.38 (7.35-7.45)
[2019-09-02 09:20] LABS: MODALITY NRB
[2019-09-02 11:48] LABS: URINE SOURCE CATH
[2019-09-02 12:01] LABS: BILIRUBIN URINE NEGATIVE (NEGATIVE); BLOOD URINE TRACE (NEGATIVE); COLOR YELLOW; GLUCOSE URINE NEGATIVE (NEGATIVE); KETONE URINE TRACE mg/dL (NEGATIVE); LEUKOCYTES URINE NEGATIVE (NEGATIVE); NITRITE URINE NEGATIVE (NEGATIVE); PH URINE 5.5; PROTEIN URINE 30 mg/dL (NEGATIVE); SP GRAVITY URINE 1.019; TURBIDITY URINE HAZY (CLEAR); UROBILINOGEN URINE NORMAL (NORMAL)
[2019-09-02 12:04] LABS: UR EPITHELIAL CELLS <10 /HPF (<10); URINE BACTERIA NEGATIVE /HPF; URINE RBC <10 /HPF (<10); URINE WBC <10 /HPF (<10)
[2019-09-02 12:05] LABS: UR CREAT RANDOM 88.7 mg/dL (14-26); UR PROT RANDOM 42.9 mg/dL
[2019-09-02 12:13] LABS: ALLEN TEST YES; BE -10.9 mmoll (-3.0-3.0); BLOOD TYPE ARTERIAL; HCO3-(ACT) 16.4 mmoll (20.0-26.0); METHB 1.1 % (0.0-1.5); O2(CT) 19.2 mL/dL (15.0-23.0); PCO2(98.6) 22 mmHg (35-45); PO2(98.6) 181 mmHg (60-100); SAMPLE BLOOD; pH(98.6) 7.36 (7.35-7.45)
[2019-09-02 12:17] LABS: MODALITY NRB
[2019-09-02 12:18] LABS: URINE YEAST PRESENT
[2019-09-02 12:19] LABS: URINE CASTS NONE SEEN; URINE CRYSTALS NONE SEEN; URINE SMALL ROUND CELLS NONE SEEN
[2019-09-02 13:29] LABS: ALBUMIN 3.3 g/dL (3.5-5.0); CALCIUM 8.7 mg/dL (8.8-10.2); CREATININE 2.6 mg/dL (0.7-1.2); PHOSPHORUS 7.6 mg/dL (2.7-4.5)
[2019-09-02 17:36] LABS: ALB/GLOB RATIO 1.2; ALBUMIN 3.3 g/dL (3.5-5.0); CALCIUM 8.6 mg/dL (8.8-10.2); CREATININE 2.7 mg/dL (0.7-1.2); POTASSIUM 4.8 mmol/L (3.5-5.1); TOTAL BILIRUBIN 8.83 mg/dL (0.20-1.00); TOTAL PROTEIN 6.1 g/dL (6.3-8.3)
[2019-09-02 20:11] LABS: ALLEN TEST YES; BE -17.1 mmoll (-3.0-3.0); BLOOD TYPE ARTERIAL; HCO3-(ACT) 11.6 mmoll (20.0-26.0); METHB 0.9 % (0.0-1.5); O2(CT) 19.1 mL/dL (15.0-23.0); O2HB 97.3 % (95.0-99.0); PCO2(98.6) 21 mmHg (35-45); PO2(98.6) 186 mmHg (60-100); SAMPLE BLOOD; SAO2 100.7 % (95.0-100.0); THB 13.7 g/dL (11.5-17.4); pH(98.6) 7.22 (7.35-7.45)
[2019-09-02 20:12] LABS: LACTATE > 20.00 mmoll (0.44-2.22); MODALITY NRB
[2019-09-03 04:41] LABS: ALLEN TEST YES; BE -19.1 mmoll (-3.0-3.0); BLOOD TYPE ARTERIAL; METHB 0.8 % (0.0-1.5); O2(CT) 19.8 mL/dL (15.0-23.0); PO2(98.6) 352 mmHg (60-100); SAMPLE BLOOD; SAO2 100.6 % (95.0-100.0); THB 13.7 g/dL (11.5-17.4)
[2019-09-03 04:43] LABS: PCO2(98.6) 17 mmHg (35-45)
[2019-09-03 04:44] LABS: LACTATE > 20.00 mmoll (0.44-2.22); MODALITY BI PAP
[2019-09-03 05:47] LABS: BASO# 0.02 X1000 (0.0-0.2); BASO% 0.1 % (0.0-0.8); HEMATOCRIT 41.4 % (42.0-52.0); HEMOGLOBIN 12.5 g/dL (14.0-18.0); IMM GRAN# 0.15 X1000 (0.0-0.04); IMM GRAN% 0.5 % (0.0-0.5); LYMPH# 0.88 X1000 (1.2-3.4); LYMPH% 2.8 % (20.5-51.1); MCH 29.2 PG (27-31); MCHC 30.2 g/dL (33-37); MCV 96.7 FL (81-99); MONO# 2.89 X1000 (0.11-0.59); MONO% 9.3 % (1.7-9.3); NEUT# 27.17 X1000 (1.4-6.5); NEUT% 87.3 % (42.2-75.2); PLT 90 X1000 (130-400); RBC 4.28 XMIL (4.7-6.1); RDW 18.7 % (11.5-14.5); WBC 31.11 X1000 (4.8-10.8)
[2019-09-03 05:49] LABS: MONO 10 % (1-9); SEGS 88 % (42-75)
[2019-09-03 06:15] LABS: INR 6.31
[2019-09-03 06:23] LABS: ALB/GLOB RATIO 1.4; ALBUMIN 3.3 g/dL (3.5-5.0); CALCIUM 8.7 mg/dL (8.8-10.2); CREATININE 3.1 mg/dL (0.7-1.2); PHOSPHORUS 11.1 mg/dL (2.7-4.5); POTASSIUM 4.8 mmol/L (3.5-5.1); TOTAL BILIRUBIN 11.42 mg/dL (0.20-1.00); TOTAL PROTEIN 5.6 g/dL (6.3-8.3)
[2019-09-03 12:13] VITALS: BP 38/18
[2019-09-04 12:25] LABS: HEPATITIS PROFILE ACUTE SEE COMMENTS
== END 2019-09-03 12:35 | disposition expired | DRG 291 ==
LOC: ED 17:45 → 2N 21:52 → SUATTDRO 21:52 → ICU 08-30 18:02
PROVIDERS: ATTEND Internal Medicine